=== PATIENT | female | born 1965 | race Caucasian/White ===

== ENCOUNTER 2017-04-24 15:25 | Emergency (ER) | payer OTHER ==
[~2017-04-24] VITALS: Ht 152.4 cm; Wt 76.0 kg
[2017-04-24 15:26] VITALS: TEMP 36.3; Ht 152.4 cm; Wt 76.0 kg
[2017-04-24] MEDS ORDERED: ONDANSETRON INJ 2 MG/ML 2 ML VIAL IV STA (15:48)
[2017-04-24] MEDS ORDERED: SODIUM CHLORIDE 0.9% 1000ML 1,000 ML IV ONE (16:00)
[2017-04-24] MEDS ORDERED: FLUO40CA8 PO (16:11)
[2017-04-24] MEDS ORDERED: CHOL1000 PO (16:11)
--- NOTE | 2017-04-24 16:13 | EMERGENCY ROOM VISIT NOTE ---
History First contact with patient: 15:30 Chief Complaint: VOMITING Stated Complaint: VOMITIMG, NAUSEA, DIARRHEA,BLOOD LOSS Nursing Triage Summary: pt to the ED with c/o lower abd pain n/v/d and today has dark brown blood in stool History of Present Illness The patient is a 51 year old female who presents to the Emergency Room with complaints of nausea, vomiting, diarrhea and bright red blood in her stool that started today. The patient reports feeling like she was constipated in her abdomen felt "tight." She took a dose of mag citrate. She then went to the [place]. She had several episodes of vomiting in the library. She then had several bowel movements. The first one was very firm and claylike. The bowel movements thereafter were diarrhea. She also reports being incontinent of bright red blood. The blood was on the floor in the bathroom. She has felt feverish with chills. 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 He does not take any blood thinners. Review of Systems 10 system review performed and negative unless noted in HPI or below Past Medical/Surgical History Depression Social History Smoking Status: Never Smoker Occupation Status: employed Current/Historical Medications Scheduled Cholecalciferol (Vitamin D3), 1,000 UNITS PO DAILY Dicyclomine Hcl (Bentyl), 1 CAP PO TID Fluoxetine (Prozac), 40 MG PO DAILY Ondasetron Odt (Zofran Odt), 4 MG SL Q6H Physical Exam Vital Signs Date Time Temp Pulse Resp B/P (MAP) Pulse Ox O2 Delivery O2 Flow Rate FiO2 04/24/17 20:41 74 20 116/71 99 Room Air 04/24/17 19:38 76 18 116/71 99 Room Air 04/24/17 17:42 78 18 131/78 99 Room Air 04/24/17 16:37 86 18 102/59 100 Room Air 04/24/17 15:26 36.3 84 22 111/87 100 Room Air Physical Exam VITALS: Vitals are noted on the nurse's note and reviewed by myself. Vital signs stable. GENERAL: 51-year-old female, moderately uncomfortable and fatigued in appearance , SKIN: The skin was without rashes, erythema, edema, or bruising. HEAD: Normocephalic atraumatic. MOUTH: Mucous membranes dry NECK: Supple without nuchal rigidity. No lymphadenopathy. Cervical spine is nontender. No JVD. HEART: Regular rate and rhythm without murmurs gallops or rubs. LUNGS: Clear to auscultation bilaterally without wheezes, rales or rhonchi. No accessory muscle use. ABDOMEN: Positive bowel sounds x 4.Soft, diffuse tenderness to palpation without any focal tenderness, without organomegaly. No guarding or rebound tenderness. RECTAL: Nonbleeding external hemorrhoids present. Mild tenderness to palpation at approximately 6:00. No palpable fissures. MUSCULOSKELETAL: No muscle atrophy, erythema, or edema noted. Strength 5/5 throughout. NEURO: Patient was alert and oriented to person place and time. Normal sensation to touch. No focal neurological deficits. Medical Decision & Procedures ER Provider Diagnostic Interpretation: CT abdomen and pelvis with IV contrast IMPRESSION: 1. Significant wall thickening and inflammatory change of an extended segment of colon involving the mid transverse colon to the proximal sigmoid colon. Inflammatory changes greatest in the distal descending colon. Findings are most consistent with an infectious colitis. The distribution are use against ischemia. No evidence of perforation or abscess. 2. Benign-appearing 3.5 cm functional right ovarian cyst. In this potentially early postmenopausal female, a follow-up ultrasound in 6-12 months is recommended to ensure resolution. Electronically signed by: Jonathan Watkins M.D. 04/24/2017 6:54 PM Chest/abdominal x-rays IMPRESSION: 1. No acute cardiopulmonary disease. 2. No radiographic evidence of acute intra-abdominal pathology. Electronically signed by: Jonathan Watkins M.D. 04/24/2017 5:15 PM Dictated Date/Time: 04/24/2017 5:14 PM Laboratory Results 04/24/17 16:25 Red Blood Count 5.14, Mean Corpuscular Volume 82.9, Mean Corpuscular Hemoglobin 28.8, Mean Corpuscular Hemoglobin Concent 34.7, Mean Platelet Volume 9.8, Neutrophils (%) (Auto) 92.9, Lymphocytes (%) (Auto) 3.0, Monocytes (%) (Auto) 3.7, Eosinophils (%) (Auto) 0.1, Basophils (%) (Auto) 0.0, Neutrophils # (Auto) 23.16, Lymphocytes # (Auto) 0.76, Monocytes # (Auto) 0.92, Eosinophils # (Auto) 0.02, Basophils # (Auto) 0.01 04/24/17 16:25 Test 04/24/17 16:20 04/24/17 16:25 04/24/17 19:35 Urine Color DK YELLOW Urine Appearance CLEAR (CLEAR) Urine pH 5.0 (4.5-7.5) Urine Specific [place] 1.024 (1.000-1.030) Urine Protein NEG (NEG) Urine Glucose (UA) NEG (NEG) Urine Ketones 1+ (NEG) Urine Occult Blood TRACE (NEG) Urine Nitrite NEG (NEG) Urine Bilirubin NEG (NEG) Urine Urobilinogen NEG (NEG) Urine Leukocyte Esterase TRACE (NEG) Urine WBC (Auto) 1-5 /hpf (0-5) Urine RBC (Auto) 0-4 /hpf (0-4) Urine Hyaline Casts (Auto) 1-5 /lpf (0-5) Urine Epithelial Cells (Auto) 20-30 /lpf (0-5) Urine Bacteria (Auto) NEG (NEG) White Blood Count 24.95 K/uL (4.8-10.8) Red Blood Count 5.14 M/uL (4.2-5.4) Hemoglobin 14.8 g/dL (12.0-16.0) Hematocrit 42.6 % (37-47) Mean Corpuscular Volume 82.9 fL (80-100) Mean Corpuscular Hemoglobin 28.8 pg (25-34) Mean Corpuscular Hemoglobin Concent 34.7 g/dl (32-36) Platelet Count 320 K/uL (130-400) Mean Platelet Volume 9.8 fL (7.4-10.4) Neutrophils (%) (Auto) 92.9 % Lymphocytes (%) (Auto) 3.0 % Monocytes (%) (Auto) 3.7 % Eosinophils (%) (Auto) 0.1 % Basophils (%) (Auto) 0.0 % Neutrophils # (Auto) 23.16 K/uL (1.4-6.5) Lymphocytes # (Auto) 0.76 K/uL (1.2-3.4) Monocytes # (Auto) 0.92 K/uL (0.11-0.59) Eosinophils # (Auto) 0.02 K/uL (0-0.5) Basophils # (Auto) 0.01 K/uL (0-0.2) RDW Standard Deviation 38.9 fL (36.4-46.3) RDW Coefficient of Variation 12.8 % (11.5-14.5) Immature Granulocyte % (Auto) 0.3 % Immature Granulocyte # (Auto) 0.08 K/uL (0.00-0.02) Red Blood Cell Morphology Unremarkable Prothrombin Time 10.0 SECONDS (9.0-12.0) Prothromb Time International Ratio 1.0 (0.9-1.1) Anion Gap 10.0 mmol/L (3-11) Est Creatinine Clear Calc Drug Dose 58.8 ml/min Estimated GFR () 73.2 Estimated GFR (Non- 63.2 BUN/Creatinine Ratio 18.6 (10-20) Calcium Level 9.9 mg/dl (8.5-10.1) Total Bilirubin 0.5 mg/dl (0.2-1) Aspartate Amino Transf (AST/SGOT) 25 U/L (15-37) Alanine Aminotransferase (ALT/SGPT) 31 U/L (12-78) Alkaline Phosphatase 77 U/L (45-117) Total Protein 7.5 gm/dl (6.4-8.2) Albumin 3.5 gm/dl (3.4-5.0) Globulin 4.0 gm/dl (2.5-4.0) Albumin/Globulin Ratio 0.9 (0.9-2) Lipase 129 U/L (73-393) Lactic Acid Level 1.2 mmol/L (0.4-2.0) Medications Administered Medications (Trade) Dose Ordered Sig/Jose Route Start Time Stop Time Status Last Admin Dose Admin Sodium Chloride 1,000 ml @ 999 mls/hr Q1H1M ONCE IV 04/24/17 16:00 04/24/17 17:00 DC 04/24/17 16:36 999 MLS/HR Ondansetron HCl (Zofran Inj) 4 mg NOW STAT IV 04/24/17 15:48 04/24/17 15:51 DC 04/24/17 16:35 4 MG Morphine Sulfate (MoRPHine SULFATE INJ) 4 mg Q1H PRN IV 04/24/17 16:00 04/24/17 20:54 DC 04/24/17 19:37 4 MG Diphenhydramine HCl (Benadryl Inj) 25 mg NOW STAT IV 04/24/17 18:06 04/24/17 18:07 DC 04/24/17 18:14 25 MG Methylprednisolone Sodium Succinate (Solu-Medrol IV) 40 mg NOW STAT IV 04/24/17 18:06 2 18:07 DC 04/24/17 18:15 40 MG Prochlorperazine Edisylate (Compazine Inj) 10 mg NOW STAT IV 04/24/17 19:31 04/24/17 19:32 DC 04/24/17 19:38 10 MG Ondansetron HCl (ZOFRAN ODT 4MG Home Pack) 1 homepack UD ONCE PO 04/24/17 20:30 04/24/17 20:31 DC 04/24/17 20:30 1 HOMEPACK Dicyclomine HCl (Dicyclomine HCl 10MG Home Pack) 1 ea UD ONCE PO 04/24/17 20:30 04/24/17 20:31 DC 04/24/17 20:30 1 EA ED Course Patient was seen and examined Vital signs including blood pressure were reviewed medications list was verified with patient Labs were obtained, and a saline lock was established The patient was medicated with morphine and Zofran. She was hydrated with 1 L normal saline. Imaging was performed and reviewed The patient was premedicated for CAT scan with Solu-Medrol and Benadryl Upon reevaluation, the patient was resting in bed. She was still complaining of pain and nausea. She was ordered Compazine and had additional dose of morphine. After the second round of medications, the patient was feeling much better. I discussed the workup with my supervising physician. It was also discussed with the radiologist. We reviewed the CT scan. I thoroughly went over the results numerous times with the patient and the patient's family. They voiced understanding. I reviewed discharge instructions the patient. They voiced understanding and had no further questions. Medical Decision Differential diagnosis: Viral GI illness, bacterial GI illness, constipation, anal fissure, hemorrhoids, inflammatory bowel disease, This patient is a 51-year-old female that presents to the emergency department with vomiting, diarrhea and blood in her stool. On exam, she was dehydrated and is moderately uncomfortable. The patient's workup reveals significant leukocytosis. This could be secondary to vomiting, however I do want to rule out infectious etiology or an obstruction. A CT was ordered. This shows mild colitis. There are no signs of ischemia. Her lactic acid is normal. She is afebrile. She was unable to give a stool sample. Regarding the blood in her stool, she was guaiac positive. She had some tenderness in the anus. My thought that this is possibly due to a small tear with the amount of constipation that the patient had earlier. The patient's H&H is stable. I believe she is stable to be discharged home. She had good symptomatic relief in the emergency department. She was advised to follow-up closely with her primary care physician. She agrees to return to the emergency department with any worsening symptoms. This chart was completed in part utilizing [employer] Speech Voice Recognition software. Attempts were made to minimize the grammatical errors, random word insertions, pronoun errors and incomplete sentences. Any formal questions or concerns about the content, text or information contained within the body of this dictation should be directly addressed to the provider for clarification. Medication Reconcilliation Current Medication List: was personally reviewed by me Blood Pressure Screening Patient's blood pressure: Normal blood pressure Impression Primary Impression: Nausea, vomiting, and diarrhea Departure Information Dispostion Home / Self-Care Condition FAIR Prescriptions Dicyclomine Hcl (BENTYL) 10 Mg Cap 1 CAP PO TID, #15 CAP Prov: Brenda Boucher PA-C 04/24/17 Ondasetron Odt (ZOFRAN ODT) 4 Mg Tab 4 MG SL Q6H for Nausea, #15 TAB Prov: Brenda Boucher PA-C 04/24/17 Referrals Francia Garza M.D. (PCP) Patient Instructions ED Diet Vomiting Diarrhea, My [facility] Additional Instructions You have been evaluated in the emergency department for vomiting, diarrhea and blood in your stool. Please follow a clear liquid diet such as Gatorade, water and sports drinks for the next 24 hours. If you are tolerating this, advance to a bland diet such as crackers and dry toast. Please take Zofran 1 tab under the tongue every 6 hours as needed for nausea Please take Bentyl 1 tab every 8 hours as needed for abdominal cramping/pain It is very important to have close follow-up from your primary care physician. Call sooner as possible for a follow-up appointment. Do not hesitate to return to the emergency department with any new, worsening or concerning symptoms; especially, fever, worsening pain or passing large amounts of blood in your stool
[2017-04-24] MEDS: MoRPHine SULFATE 4 MG/ML 1 ML CARP\\VIAL IV PRN ×2 (16:36→19:37)
[2017-04-24 16:42] LABS: HEMATOCRIT 42.6 % (37-47); HEMOGLOBIN 14.8 g/dL (12.0-16.0); MEAN CELL VOLUME 82.9 fL (80-100); MEAN CORPUSCULAR HEMOGLOBIN 28.8 pg (25-34); MEAN CORPUSCULAR HGB CONC 34.7 g/dl (32-36); MEAN PLATELET VOLUME 9.8 fL (7.4-10.4); PLATELET COUNT 320 K/uL (130-400); RED CELL DISTRIBUTION WIDTH CV 12.8 % (11.5-14.5); RED CELL DISTRIBUTION WIDTH SD 38.9 fL (36.4-46.3); WHITE BLOOD COUNT 24.95 K/uL (4.8-10.8)
[2017-04-24 17:02] LABS: ALBUMIN 3.5 gm/dl (3.4-5.0); CALCIUM 9.9 mg/dl (8.5-10.1); CREATININE 1.02 mg/dl (0.60-1.20); POTASSIUM 3.4 mmol/L (3.5-5.1)
[2017-04-24 17:05] LABS: BASO ABS # 0.01 K/uL (0-0.2); EOS % 0.1 %; EOS ABS # 0.02 K/uL (0-0.5); IG# 0.08 K/uL (0.00-0.02); LYMPH ABS # 0.76 K/uL (1.2-3.4); MONO % 3.7 %; MONO ABS # 0.92 K/uL (0.11-0.59); NEUT % 92.9 %; NEUT ABS # 23.16 K/uL (1.4-6.5); TOTAL PROTEIN 7.5 gm/dl (6.4-8.2)
--- NOTE | 2017-04-24 17:16 | DIAGNOSTIC IMAGING REPORT ---
ABDOMEN 2VIEW W/PA CHEST RTN CLINICAL HISTORY: 51 years-old Female presenting with abd pain vomiting blood in stool. TECHNIQUE: PA view of the chest and supine and upright views of the abdomen were obtained. COMPARISON: None. FINDINGS: Cardiomediastinal silhouette normal. Lungs and pleural spaces clear. Nonobstructive bowel gas pattern. No gross pneumoperitoneum. Allowing for bowel gas and stool, no calcifications to suggest nephrolithiasis. Osseous structures normal. IMPRESSION: 1. No acute cardiopulmonary disease. 2. No radiographic evidence of acute intra-abdominal pathology. Electronically signed by: Jonathan Watkins M.D. 04/24/2017 5:15 PM Dictated Date/Time: 04/24/2017 5:14 PM
[2017-04-24] MEDS ORDERED: OPTIRAY 320 IV PRN (17:30)
[2017-04-24] MEDS ORDERED: METHYLPREDNISOLONE 1000 MG/16 ML IV STA (18:06)
[2017-04-24] MEDS ORDERED: DiphenhydrAMINE HCL 50 MG/ML VIAL IV STA (18:06)
--- NOTE | 2017-04-24 18:55 | DIAGNOSTIC IMAGING REPORT ---
ABD/PELVIS IV CONTRAST ONLY CLINICAL HISTORY: 51 years-old Female presenting with n/v/d blood in stool, lower abdominal pain. TECHNIQUE: Multidetector CT of the abdomen and pelvis was performed after the administration of intravenous contrast. IV contrast: 93 mL of Optiray 320. A dose lowering technique was used consistent with the principles of ALARA (as low as reasonably achievable). COMPARISON: None. CT DOSE (mGy.cm): The estimated cumulative dose is 438.70 mGy.cm. FINDINGS: Tank Setter topogram: Unremarkable. Lung bases: Lungs and pleural spaces clear. Normal heart size. No pericardial or pleural effusion. Liver: Normal morphology. No liver lesion. Patent hepatic vasculature. Biliary: No intrahepatic or extrahepatic biliary ductal dilatation. Normal gallbladder. Pancreas: Normal. Spleen: Normal. Adrenal glands: Normal. Kidneys and ureters: Few subcentimeter hypodensities in the kidneys to small to characterize but possibly cysts. No hydronephrosis. No nephrolithiasis. Normal ureters. Bladder: Normal. Pelvic organs: Normal uterus and left ovary. Right ovary contains a simple appearing 3.5 cm cyst. Bowel: Wall thickening with submucosal edema extending from the mid transverse colon to the proximal sigmoid colon. Pericolonic fat stranding most prominently in the distal descending colon. No evidence of diverticula. No adjacent fluid collection to suggest abscess. No evidence of perforation. The appendix is normal. No bowel obstruction. Small hiatal hernia. Peritoneal cavity: No free fluid or intraperitoneal gas. Lymph nodes: No enlarged lymph nodes in the abdomen or pelvis. Vasculature: Aorta and IVC patent and normal in caliber. Abdominal wall: Normal. Musculoskeletal: Normal. IMPRESSION: 1. Significant wall thickening and inflammatory change of an extended segment of colon involving the mid transverse colon to the proximal sigmoid colon. Inflammatory changes greatest in the distal descending colon. Findings are most consistent with an infectious colitis. The distribution are use against ischemia. No evidence of perforation or abscess. 2. Benign-appearing 3.5 cm functional right ovarian cyst. In this potentially early postmenopausal female, a follow-up ultrasound in 6-12 months is recommended to ensure resolution. Electronically signed by: Jonathan Watkins M.D. 04/24/2017 6:54 PM Dictated Date/Time: 04/24/2017 6:47 PM
[2017-04-24] MEDS ORDERED: PROCHLORPERAZINE 5 MG/ML 2 ML VIAL IV STA (19:31)
[2017-04-24] MEDS ORDERED: ONDA4TAB10 SL (20:26)
[2017-04-24] MEDS ORDERED: DICY10CA55 PO (20:26)
[2017-04-24] MEDS ORDERED: ONDANSETRON HOME PACK 4MG OD TAB PO ONE (20:30)
[2017-04-24] MEDS ORDERED: BENTYL HOME PACK 10 MG VIAL PO ONE (20:30)
[2017-04-24 20:41] VITALS: BP 116/71; PULSE 74; O2SAT 99
== END 2017-04-24 20:43 | disposition home or self-care (01) ==
LOC: C.EDB 15:27
DX: R11.2 Nausea with vomiting, unspecified (principal); R19.7 Diarrhea, unspecified; F32.9 Major depressive disorder, single episode, unspecified; Z79.899 Other long term (current) drug therapy

== ENCOUNTER 2019-07-02 15:14 | Inpatient (IN) ==
[2019-07-02] MEDS ORDERED: ALBUT/IPRATROP 3MG/0.5MG NEB 3 ML VIAL INH STA (15:39)
[2019-07-02] MEDS ORDERED: SODIUM CHLORIDE 0.9% 1000ML 1,000 ML IV SCH ×2 (15:45→17:20)
--- NOTE | 2019-07-02 15:54 | Emergency Department Note ---
Impression & Plan Asthma with exacerbation, Diffuse wheezing, SOB (shortness of breath), Tachycardia, SIRS (systemic inflammatory response syndrome) ED Provider Note NAME: TRAVIS JAMES AGE: 53 SEX: F ARRIVES VIA: Ambulance INFORMANT: [Patient] ED PROVIDER(S): Konrad Farnsworth MD CHIEF COMPLAINT: Shortness of breath PLAN: Disposition: Admitted Condition: [Good] MEDICAL DECISION MAKING: The patient has a history of asthma and reactive airways. She has had several weeks of symptoms and despite multiple treatments with her nebulizer, inhaler, and 2 rounds of prednisone she is not getting any better. She had diffuse wheezing and tachycardia. She was treated with an hour-long DuoNeb. EMS did give her Solu-Medrol prehospital. Chest x-ray and blood work were obtained. ECG was done. Patient was in respiratory isolation due to concerns for novel coronavirus. Flu testing was performed as well. Blood work revealed a significant leukocytosis. The patient's blood pressure did fluctuate. Her VBG was unremarkable. This fluctuation in her blood pressure leukocytosis was concerning for Sirs. She was treated with broad-spectrum antibiotics. Hospital admission is absolutely necessary. This was discussed with the patient and she was in agreement. She was feeling better after the DuoNeb treatment. She was still tachycardic. I discussed the case with Dr. Freeman of the [facility]. He will have the patient in isolation and test her for normal coronavirus. Consultation was made with the [facility]. The patient was evaluated for further management. Triage Nursing notes reviewed and agree them. Vital Signs: reviewed and remarkable for tachycardia Differential diagnosis: Reactive airway disease, pneumonia, viral syndrome, pneumothorax, COPD, CHF, infections, cardiac ischemia, pulmonary embolism, musculoskeletal, gastrointestinal, as well as other pathologies. ER treatment provided: Hour-long DuoNeb Supplemental oxygen Respiratory isolation Saline hydration IV cefepime IV doxycycline Diagnostics interpreted by me: ECG: [none] Cardiac Monitoring: Cardiac monitoring ordered by me: The patient was placed on continuous cardiac monitoring and observed. It revealed a sinus tachycardia at 122 beats per minute without ectopy or evidence of dysrhythmia. Laboratory studies: [See below] significant leukocytosis on CBC. Chemistry panel was unremarkable. Blood cultures pending. Influenza testing negative. Imaging studies: Chest x-ray did not reveal any acute process. No annelise infiltrates. Consultation(s): [facility]: HPI: The patient is a 53 year old female who presents to the Emergency Room with complaints of shortness of breath and wheezing. This started several weeks ago and is worsening. The patient also notes the following associated symptoms, cough with occasional yellow sputum. The patient has tried her inhaler, nebulizer, and 2 rounds of prednisone for relieving factors. Current pain is rated as 0/10. Patient occasionally had some chest tightness with coughing. She has a history of asthma. Her daughter did travel abroad during the month of May. She also noted contact with the person had flulike symptoms, fever, and myalgias. She was not tested for novel coronavirus. She had prescriptions called in by her primary office but has not been seen for this problem. Pt denies LOC, headache, fevers, chills, diaphoresis, visual changes, neck pain, chest pain, nausea, vomiting, abdominal pain, back pain, melena, hematochezia, urinary symptoms, numbness, weakness, lymphadenopathy, rash, or other complaints. ROS: See above HPI for pertinent positives & negatives. A total of [10] systems reviewed and were otherwise negative. PAST MEDICAL HISTORY:[See Below] asthma PAST SURGICAL HISTORY:[See Below] FAMILY HISTORY:[See Below] SOCIAL HISTORY:[See Below] lives with family HOME MEDICATIONS:[See Below] ALLERGIES:[See Below] VITALS:[See Below] PHYSICAL EXAMINATION: GENERAL: Awake, alert, dyspnea-appearing, in mild distress HENT: Normocephalic, atraumatic. Oropharynx unremarkable. EYES: Normal conjunctiva. Sclera non-icteric. NECK: Inspection normal. Non-tender. Supple. No nuchal rigidity. FROM. No masses. RESPIRATORY: Bilateral wheezes. No rales. Increased respiratory effort. CARDIAC: Tachycardia rate. Normal rhythm. No murmurs. No rubs. Extremities warm and well perfused. Pulses equal. No JVD. GI: Soft, non-distended. No tenderness to palpation. No rebound or guarding. No masses. RECTAL: Deferred. MUSCULOSKELETAL: Atraumatic. Chest examination reveals no tenderness. The back is symmetrical on inspection without obvious abnormality. There is no CVA tenderness to palpation. No joint edema. LOWER EXTREMITIES: Calves are equal size bilaterally and non-tender. No edema. No discoloration. NEURO: Normal sensorium. No sensory or motor deficits noted. SKIN: No rash or jaundice noted. ED COURSE: [Critical Care:] I have personally spent greater than 38 minutes of critical care time in the direct management of this patient. This includes bedside care, interpretation of diagnostic studies, and testing, discussion with consultants, patient, and other required patient management activities. This 38 minutes is in excess of all separately billable procedures. Konrad Farnsworth MD Past Med/Surg History Social History Preferred Language: Upper Sorbian Feels Safe at Home: Yes Smoking Status: Never smoker Allergies Allergies Allergy/AdvReac Type Severity Reaction Status Date / Time Penicillins Allergy Intermediate rash Verified 07/02/19 16:40 Sulfa (Sulfonamide Allergy Intermediate rash Verified 07/02/19 16:40 Antibiotics) Home Meds Home Medications Medication Instructions Recorded Confirmed albuterol sulfate [Ventolin HFA] 2 puff INHALATION .Q4-6HRS PRN 07/02/19 07/02/19 cetirizine 10 mg PO DAILY PRN 07/02/19 07/02/19 famotidine [Pepcid] 20 mg PO BID PRN 07/02/19 07/02/19 fluoxetine 40 mg PO DAILY 07/02/19 07/02/19 fluticasone propionate [Flonase 2 spray INTRANASAL DAILY PRN 07/02/19 07/02/19 Allergy Relief] [id number] oil [[place]-3 1 cap PO DAILY 07/02/19 07/02/19 Fish Oil] Results & Data (ED) Vital Signs Vital Signs - 24 hr 07/02/19 15:15 07/02/19 15:34 07/02/19 15:39 Temperature 37.2 C Temperature Source Oral Pulse Rate 120 H Pulse Rate [Finger] Pulse Rate from SpO2 Sensor Respiratory Rate 30 H Respiratory Effort / Characteristics Non-Labored Spontaneous Respiratory Depth Normal Respiratory Pattern Regular Blood Pressure 122/89 122/89 Blood Pressure Mean 100 101 Blood Pressure Position Lying Pulse Oximetry 92 92 Oxygen Delivery Method Room Air Room Air Oxygen Flow Rate 0 Sepsis Recent Fever Within 48 Hours No Sepsis New/Unexplained Change in Mental Status No Sepsis Action Taken by Nursing No Action Required Oxygen Flow Rate - Titration 2 Pulse Oximetry Post Tiitration 95 07/02/19 15:43 07/02/19 15:50 07/02/19 16:00 Temperature Temperature Source Pulse Rate 120 H 113 H Pulse Rate [Finger] Pulse Rate from SpO2 Sensor 121 H 120 H 115 H Respiratory Rate 35 H 23 Respiratory Effort / Characteristics Respiratory Depth Respiratory Pattern Blood Pressure Blood Pressure Mean Blood Pressure Position Pulse Oximetry 95 93 98 Oxygen Delivery Method Oxygen Flow Rate Sepsis Recent Fever Within 48 Hours Sepsis New/Unexplained Change in Mental Status Sepsis Action Taken by Nursing Oxygen Flow Rate - Titration Pulse Oximetry Post Tiitration 07/02/19 16:01 07/02/19 16:10 07/02/19 16:17 Temperature Temperature Source Pulse Rate 114 H 119 H Pulse Rate [Finger] 115 H Pulse Rate from SpO2 Sensor 114 H 119 H Respiratory Rate 26 H 26 H 20 Respiratory Effort / Characteristics Spontaneous Respiratory Depth Respiratory Pattern Blood Pressure 77/59 L Blood Pressure Mean 65 Blood Pressure Position Pulse Oximetry 98 97 93 Oxygen Delivery Method Room Air Oxygen Flow Rate Sepsis Recent Fever Within 48 Hours Sepsis New/Unexplained Change in Mental Status Sepsis Action Taken by Nursing Oxygen Flow Rate - Titration Pulse Oximetry Post Tiitration 07/02/19 16:18 07/02/19 16:20 07/02/19 16:30 Temperature Temperature Source Pulse Rate Pulse Rate [Finger] Pulse Rate from SpO2 Sensor 115 H 115 H 116 H Respiratory Rate Respiratory Effort / Characteristics Respiratory Depth Respiratory Pattern Blood Pressure 130/63 133/63 Blood Pressure Mean 84 84 Blood Pressure Position Pulse Oximetry 99 98 100 Oxygen Delivery Method Oxygen Flow Rate Sepsis Recent Fever Within 48 Hours Sepsis New/Unexplained Change in Mental Status Sepsis Action Taken by Nursing Oxygen Flow Rate - Titration Pulse Oximetry Post Tiitration 07/02/19 16:31 07/02/19 16:40 07/02/19 16:50 Temperature Temperature Source Pulse Rate Pulse Rate [Finger] Pulse Rate from SpO2 Sensor 117 H 118 H 127 H Respiratory Rate Respiratory Effort / Characteristics Respiratory Depth Respiratory Pattern Blood Pressure Blood Pressure Mean Blood Pressure Position Pulse Oximetry 99 100 100 Oxygen Delivery Method Oxygen Flow Rate Sepsis Recent Fever Within 48 Hours Sepsis New/Unexplained Change in Mental Status Sepsis Action Taken by Nursing Oxygen Flow Rate - Titration Pulse Oximetry Post Tiitration 07/02/19 17:00 07/02/19 17:01 07/02/19 17:08 Temperature Temperature Source Pulse Rate Pulse Rate [Finger] Pulse Rate from SpO2 Sensor 132 H 129 H 128 H Respiratory Rate Respiratory Effort / Characteristics Respiratory Depth Respiratory Pattern Blood Pressure 94/62 L 100/52 L Blood Pressure Mean 78 64 Blood Pressure Position Pulse Oximetry 100 100 100 Oxygen Delivery Method Oxygen Flow Rate Sepsis Recent Fever Within 48 Hours Sepsis New/Unexplained Change in Mental Status Sepsis Action Taken by Nursing Oxygen Flow Rate - Titration Pulse Oximetry Post Tiitration 07/02/19 17:31 07/02/19 18:00 07/02/19 18:30 Temperature Temperature Source Pulse Rate 126 H Pulse Rate [Finger] Pulse Rate from SpO2 Sensor 127 H 128 H 125 H Respiratory Rate 27 H Respiratory Effort / Characteristics Respiratory Depth Respiratory Pattern Blood Pressure 87/55 L 104/60 89/64 L Blood Pressure Mean 72 78 69 Blood Pressure Position Pulse Oximetry 100 96 94 Oxygen Delivery Method Oxygen Flow Rate Sepsis Recent Fever Within 48 Hours Sepsis New/Unexplained Change in Mental Status Sepsis Action Taken by Nursing Oxygen Flow Rate - Titration Pulse Oximetry Post Tiitration Laboratory Data Result diagrams: 07/02/19 16:00 07/02/19 16:00 Lab Results 07/02/19 07/02/19 07/02/19 Range/Units 16:00 16:00 16:00 WBC 18.23 H (4.8-10.8) K/uL RBC 5.24 (4.2-5.4) M/uL Hgb 14.7 (12.0-16.0) g/dL Hct 44.6 (37-47) % MCV 85.1 (80-100) fL MCH 28.1 (25-34) pg MCHC 33.0 (32-36) g/dL RDW Std Deviation 40.7 (36.4-46.3) fL RDW Coeff of Mary Kay 13.2 (11.5-14.5) % Plt Count 355 (130-400) K/uL MPV 9.6 (7.4-10.4) fL Immature Gran % (Auto) 0.3 % Neut % (Auto) 89.1 % Lymph % (Auto) 5.4 % [place] % (Auto) 3.4 % Eos % (Auto) 1.6 % Baso % (Auto) 0.2 % Immature Gran # (Auto) 0.05 H (0.00-0.02) K/uL Neut # (Auto) 16.25 H (1.4-6.5) K/uL Lymph # (Auto) 0.99 L (1.2-3.4) K/uL [place] # (Auto) 0.62 H (0.11-0.59) K/uL Eos # (Auto) 0.29 (0-0.5) K/uL Baso # (Auto) 0.03 (0-0.2) K/uL ESR (0-21) mm/hr PT 10.1 (9.0-12.0) Seconds INR 1.0 (0.9-1.1) APTT 25.6 (21.0-31.0) Seconds PTT Ratio 0.9 VBG pH (7.36-7.41) VBG pCO2 (38-50) mmHg VBG pO2 mmHg VBG HCO3 mmol/L VBG O2 Saturation % VBG Base Excess mEq/L Barometric Pressure mm/Hg Sodium 140 (136-145) mmol/L Potassium 4.0 (3.5-5.1) mmol/L Chloride 106 (98-107) mmol/L Carbon Dioxide 26 (21-32) mmol/L Anion Gap 7.0 (3-11) BUN 12 (7-18) mg/dl Creatinine 0.98 (0.6-1.2) mg/dl Est Cr Clr Drug Dosing 59.7 ml/min Est GFR ( Amer) 75.8 Est GFR (Non-Af Amer) 65.4 BUN/Creatinine Ratio 12.7 (10-20) Glucose 107 H (70-99) mg/dl Lactate (0.4-2.0) mmol/L Calcium 9.2 (8.5-10.1) mg/dl Magnesium 2.3 (1.8-2.4) mg/dl Ferritin (8-388) ng/ml Total Bilirubin 0.2 (0.2-1) mg/dl AST 31 (15-37) U/L ALT 57 (12-78) U/L Alkaline Phosphatase 145 H (45-117) U/L Lactate Dehydrogenase (84-246) U/L Troponin I < 0.015 (0-0.045) ng/ml C-Reactive Protein (0-0.29) mg/dl Total Protein 7.9 (6.4-8.2) gm/dl Albumin 3.6 (3.4-5.0) gm/dl Globulin 4.3 H (2.5-4.0) gm/dl Albumin/Globulin Ratio 0.8 L (0.9-2) Procalcitonin (0-0.5) ng/ml Specimen Hemolysis Urine Color Urine Appearance (Clear) Urine pH (4.5-7.5) Ur Specific [place] (1.000-1.030) Urine Protein (Negative) Urine Glucose (UA) (Negative) Urine Ketones (Negative) Urine Blood (Negative) Urine Nitrite (Negative) Urine Bilirubin (Negative) Urine Urobilinogen (Negative) Ur Leukocyte Esterase (Negative) Urine WBC (Auto) (0-5) /hpf Urine RBC (Auto) (0-4) /hpf U Hyaline Cast (Auto) (0-5) /lpf U Epithel Cells (Auto) (0-5) /lpf Urine Bacteria (Auto) (Negative) Influenza Type A (PCR) (Neg) Influenza Type B (PCR) (Neg) 07/02/19 07/02/19 07/02/19 Range/Units 16:00 16:00 16:00 WBC (4.8-10.8) K/uL RBC (4.2-5.4) M/uL Hgb (12.0-16.0) g/dL Hct (37-47) % MCV (80-100) fL MCH (25-34) pg MCHC (32-36) g/dL RDW Std Deviation (36.4-46.3) fL RDW Coeff of Mary Kay (11.5-14.5) % Plt Count (130-400) K/uL MPV (7.4-10.4) fL Immature Gran % (Auto) % Neut % (Auto) % Lymph % (Auto) % [place] % (Auto) % Eos % (Auto) % Baso % (Auto) % Immature Gran # (Auto) (0.00-0.02) K/uL Neut # (Auto) (1.4-6.5) K/uL Lymph # (Auto) (1.2-3.4) K/uL [place] # (Auto) (0.11-0.59) K/uL Eos # (Auto) (0-0.5) K/uL Baso # (Auto) (0-0.2) K/uL ESR (0-21) mm/hr PT (9.0-12.0) Seconds INR (0.9-1.1) APTT (21.0-31.0) Seconds PTT Ratio VBG pH 7.33 L (7.36-7.41) VBG pCO2 52 H (38-50) mmHg VBG pO2 53 mmHg VBG HCO3 27 mmol/L VBG O2 Saturation 73.0 % VBG Base Excess -0.2 mEq/L Barometric Pressure 724.7 mm/Hg Sodium (136-145) mmol/L Potassium (3.5-5.1) mmol/L Chloride (98-107) mmol/L Carbon Dioxide (21-32) mmol/L Anion Gap (3-11) BUN (7-18) mg/dl Creatinine (0.6-1.2) mg/dl Est Cr Clr Drug Dosing ml/min Est GFR ( Amer) Est GFR (Non-Af Amer) BUN/Creatinine Ratio (10-20) Glucose (70-99) mg/dl Lactate 1.4 (0.4-2.0) mmol/L Calcium (8.5-10.1) mg/dl Magnesium (1.8-2.4) mg/dl Ferritin (8-388) ng/ml Total Bilirubin (0.2-1) mg/dl AST (15-37) U/L ALT (12-78) U/L Alkaline Phosphatase (45-117) U/L Lactate Dehydrogenase (84-246) U/L Troponin I (0-0.045) ng/ml C-Reactive Protein (0-0.29) mg/dl Total Protein (6.4-8.2) gm/dl Albumin (3.4-5.0) gm/dl Globulin (2.5-4.0) gm/dl Albumin/Globulin Ratio (0.9-2) Procalcitonin (0-0.5) ng/ml Specimen Hemolysis Urine Color Urine Appearance (Clear) Urine pH (4.5-7.5) Ur Specific [place] (1.000-1.030) Urine Protein (Negative) Urine Glucose (UA) (Negative) Urine Ketones (Negative) Urine Blood (Negative) Urine Nitrite (Negative) Urine Bilirubin (Negative) Urine Urobilinogen (Negative) Ur Leukocyte Esterase (Negative) Urine WBC (Auto) (0-5) /hpf Urine RBC (Auto) (0-4) /hpf U Hyaline Cast (Auto) (0-5) /lpf U Epithel Cells (Auto) (0-5) /lpf Urine Bacteria (Auto) (Negative) Influenza Type A (PCR) Neg for Influ A (Neg) Influenza Type B (PCR) Neg for Influ B (Neg) 07/02/19 07/02/19 07/02/19 Range/Units 16:00 16:00 16:00 WBC (4.8-10.8) K/uL RBC (4.2-5.4) M/uL Hgb (12.0-16.0) g/dL Hct (37-47) % MCV (80-100) fL MCH (25-34) pg MCHC (32-36) g/dL RDW Std Deviation (36.4-46.3) fL RDW Coeff of Mary Kay (11.5-14.5) % Plt Count (130-400) K/uL MPV (7.4-10.4) fL Immature Gran % (Auto) % Neut % (Auto) % Lymph % (Auto) % [place] % (Auto) % Eos % (Auto) % Baso % (Auto) % Immature Gran # (Auto) (0.00-0.02) K/uL Neut # (Auto) (1.4-6.5) K/uL Lymph # (Auto) (1.2-3.4) K/uL [place] # (Auto) (0.11-0.59) K/uL Eos # (Auto) (0-0.5) K/uL Baso # (Auto) (0-0.2) K/uL ESR 51 H (0-21) mm/hr PT (9.0-12.0) Seconds INR (0.9-1.1) APTT (21.0-31.0) Seconds PTT Ratio VBG pH (7.36-7.41) VBG pCO2 (38-50) mmHg VBG pO2 mmHg VBG HCO3 mmol/L VBG O2 Saturation % VBG Base Excess mEq/L Barometric Pressure mm/Hg Sodium (136-145) mmol/L Potassium (3.5-5.1) mmol/L Chloride (98-107) mmol/L Carbon Dioxide (21-32) mmol/L Anion Gap (3-11) BUN (7-18) mg/dl Creatinine (0.6-1.2) mg/dl Est Cr Clr Drug Dosing ml/min Est GFR ( Amer) Est GFR (Non-Af Amer) BUN/Creatinine Ratio (10-20) Glucose (70-99) mg/dl Lactate (0.4-2.0) mmol/L Calcium (8.5-10.1) mg/dl Magnesium (1.8-2.4) mg/dl Ferritin 59.2 (8-388) ng/ml Total Bilirubin (0.2-1) mg/dl AST (15-37) U/L ALT (12-78) U/L Alkaline Phosphatase (45-117) U/L Lactate Dehydrogenase (84-246) U/L Troponin I (0-0.045) ng/ml C-Reactive Protein 0.62 H (0-0.29) mg/dl Total Protein (6.4-8.2) gm/dl Albumin (3.4-5.0) gm/dl Globulin (2.5-4.0) gm/dl Albumin/Globulin Ratio (0.9-2) Procalcitonin < 0.05 (0-0.5) ng/ml Specimen Hemolysis Urine Color Urine Appearance (Clear) Urine pH (4.5-7.5) Ur Specific [place] (1.000-1.030) Urine Protein (Negative) Urine Glucose (UA) (Negative) Urine Ketones (Negative) Urine Blood (Negative) Urine Nitrite (Negative) Urine Bilirubin (Negative) Urine Urobilinogen (Negative) Ur Leukocyte Esterase (Negative) Urine WBC (Auto) (0-5) /hpf Urine RBC (Auto) (0-4) /hpf U Hyaline Cast (Auto) (0-5) /lpf U Epithel Cells (Auto) (0-5) /lpf Urine Bacteria (Auto) (Negative) Influenza Type A (PCR) (Neg) Influenza Type B (PCR) (Neg) 07/02/19 07/02/19 Range/Units 17:30 17:49 WBC (4.8-10.8) K/uL RBC (4.2-5.4) M/uL Hgb (12.0-16.0) g/dL Hct (37-47) % MCV (80-100) fL MCH (25-34) pg MCHC (32-36) g/dL RDW Std Deviation (36.4-46.3) fL RDW Coeff of Mary Kay (11.5-14.5) % Plt Count (130-400) K/uL MPV (7.4-10.4) fL Immature Gran % (Auto) % Neut % (Auto) % Lymph % (Auto) % [place] % (Auto) % Eos % (Auto) % Baso % (Auto) % Immature Gran # (Auto) (0.00-0.02) K/uL Neut # (Auto) (1.4-6.5) K/uL Lymph # (Auto) (1.2-3.4) K/uL [place] # (Auto) (0.11-0.59) K/uL Eos # (Auto) (0-0.5) K/uL Baso # (Auto) (0-0.2) K/uL ESR (0-21) mm/hr PT (9.0-12.0) Seconds INR (0.9-1.1) APTT (21.0-31.0) Seconds PTT Ratio VBG pH (7.36-7.41) VBG pCO2 (38-50) mmHg VBG pO2 mmHg VBG HCO3 mmol/L VBG O2 Saturation % VBG Base Excess mEq/L Barometric Pressure mm/Hg Sodium (136-145) mmol/L Potassium (3.5-5.1) mmol/L Chloride (98-107) mmol/L Carbon Dioxide (21-32) mmol/L Anion Gap (3-11) BUN (7-18) mg/dl Creatinine (0.6-1.2) mg/dl Est Cr Clr Drug Dosing ml/min Est GFR ( Amer) Est GFR (Non-Af Amer) BUN/Creatinine Ratio (10-20) Glucose (70-99) mg/dl Lactate (0.4-2.0) mmol/L Calcium (8.5-10.1) mg/dl Magnesium (1.8-2.4) mg/dl Ferritin (8-388) ng/ml Total Bilirubin (0.2-1) mg/dl AST (15-37) U/L ALT (12-78) U/L Alkaline Phosphatase (45-117) U/L Lactate Dehydrogenase 203 (84-246) U/L Troponin I (0-0.045) ng/ml C-Reactive Protein (0-0.29) mg/dl Total Protein (6.4-8.2) gm/dl Albumin (3.4-5.0) gm/dl Globulin (2.5-4.0) gm/dl Albumin/Globulin Ratio (0.9-2) Procalcitonin (0-0.5) ng/ml Specimen Hemolysis Urine Color Yellow Urine Appearance Clear (Clear) Urine pH 5.0 (4.5-7.5) Ur Specific [place] 1.024 (1.000-1.030) Urine Protein Negative (Negative) Urine Glucose (UA) Negative (Negative) Urine Ketones Negative (Negative) Urine Blood 2+ H (Negative) Urine Nitrite Negative (Negative) Urine Bilirubin Negative (Negative) Urine Urobilinogen Negative (Negative) Ur Leukocyte Esterase Negative (Negative) Urine WBC (Auto) 1-5 (0-5) /hpf Urine RBC (Auto) 0-4 (0-4) /hpf U Hyaline Cast (Auto) 1-5 (0-5) /lpf U Epithel Cells (Auto) >30 H (0-5) /lpf Urine Bacteria (Auto) Negative (Negative) Influenza Type A (PCR) (Neg) Influenza Type B (PCR) (Neg) Administered Medications Doxycycline Hyclate 100 mg/ (Dextrose) 110 mls @ 50 mls/hr IV NOW STA Stop: 07/02/19 19:30 Last Admin: 07/02/19 18:20 Dose: 50 mls/hr Documented by: [id number] Discontinued Medications Albuterol (Duoneb) 12 ml INH ONE STA Stop: 07/02/19 15:40 Last Admin: 07/02/19 16:15 Dose: 12 ml Documented by: [id number] Sodium Chloride (Nss 1000ml) 1,000 mls @ 999 mls/hr IV .Q1H1M [place] Stop: 07/02/19 16:45 Last Admin: 07/02/19 18:00 Dose: 999 mls/hr Documented by: [id number] Sodium Chloride (Nss 1000ml) 1,000 mls @ 999 mls/hr IV .Q1H1M [place] Stop: 07/02/19 18:20 Last Admin: 07/02/19 18:00 Dose: 999 mls/hr Documented by: [id number] Cefepime HCl 2,000 mg/ Syringe 20 mls @ 5.5 mls/min IV NOW STA Stop: 07/02/19 17:22 Last Admin: 07/02/19 18:10 Dose: 5.5 mls/min Documented by: [id number] Methylprednisolone (Solumedrol) 40 mg IV NOW STA Stop: 07/02/19 18:16 Last Admin: 07/02/19 19:06 Dose: Not Given Documented by: [id number] Discharge Plan Visit Data Chief Complaint: Shortness of Breath/Dyspnea Stated Complaint: SOB ED Provider: Konrad Farnsworth Discharge Problem: Asthma with exacerbation, Diffuse wheezing, SOB (shortness of breath), Tachycardia, SIRS (systemic inflammatory response syndrome) Forms Stand Alone Forms: [employer] [facility] [place] Prescriptions Prescriptions: No Action fluoxetine 40 mg capsule 40 mg PO DAILY RF: 0 cetirizine 10 mg Tablet 10 mg PO DAILY PRN (Reason: Allergy Symptoms) RF: 0 famotidine [Pepcid] 20 mg Tablet 20 mg PO BID PRN (Reason: Heartburn) RF: 0 albuterol sulfate [Ventolin HFA] 90 mcg/actuation HFA aerosol inhaler 2 puff INHALATION .Q4-6HRS PRN (Reason: Shortness Of Breath Or Wheezing) RF: 0 fluticasone propionate [Flonase Allergy Relief] 50 mcg/actuation [place],Susp ension 2 spray INTRANASAL DAILY PRN (Reason: Allergy Symptoms) RF: 0 [place]-3 Fish Oil 300-1,000 mg Capsule 1 cap PO DAILY RF: 0 Referrals Referrals: PCP,NO [Physician] -
[2019-07-02 16:15] LABS: Basophils # (auto) 0.03 K/uL (0-0.2); Basophils % (auto) 0.2 %; Eosinophils # (auto) 0.29 K/uL (0-0.5); Eosinophils % (auto) 1.6 %; Hematocrit (blood only) 44.6 % (37-47); Hemoglobin 14.7 g/dL (12.0-16.0); Immature Granulocytes # (auto) 0.05 K/uL (0.00-0.02); Immature Granulocytes % (auto) 0.3 %; Lymphocytes # (auto) 0.99 K/uL (1.2-3.4); Lymphocytes % (auto) 5.4 %; Mean Corpuscular Hemoglobin 28.1 pg (25-34); Mean Corpuscular Volume 85.1 fL (80-100); Mean Platelet Volume 9.6 fL (7.4-10.4); Monocytes # (auto) 0.62 K/uL (0.11-0.59); Monocytes % (auto) 3.4 %; Neutrophils # (auto) 16.25 K/uL (1.4-6.5); Neutrophils % (auto) 89.1 %; Platelet Count 355 K/uL (130-400); RDW Coefficient of Variation 13.2 % (11.5-14.5); RDW Standard Deviation 40.7 fL (36.4-46.3); Red Blood Count 5.24 M/uL (4.2-5.4); White Blood Count 18.23 K/uL (4.8-10.8)
--- NOTE | 2019-07-02 16:22 | XRay Report ---
XR chest 1V portable HISTORY: 53 years-old Female Dyspnea acute shortness of breath COMPARISON: Acute abdominal series radiographs 04/24/2017 TECHNIQUE: Portable AP view of the chest FINDINGS: Cardiomediastinal and hilar silhouettes are within normal limits. No pneumothorax, pleural effusion, airspace consolidation or overt pulmonary edema.. Subacute to chronic appearing mildly displaced frac ture of the lateral left fourth rib, new from comparison. Mild sigmoidal thoracolumbar scoliosis. IMPRESSION: 1. No acute cardiopulmonary abnormality. 2. Subacute to chronic appearing mildly displaced fracture of the lateral left fourth rib. ACT 112: Negative or not required by law. The above report was generated using voice recognition software. It may contain grammatical, syntax o r spelling errors. Electronically signed by: Hussein Kwong M.D. 07/02/2019 4:20 PM
[2019-07-02 16:25] LABS: Base Excess VBG -0.2 mEq/L; pH VBG 7.33 (7.36-7.41)
[2019-07-02 16:26] LABS: Partial Thromboplastin Ratio 0.9; Partial Thromboplastin Time 25.6 Seconds (21.0-31.0); Prothrombin Time 10.1 Seconds (9.0-12.0)
[2019-07-02 16:51] LABS: Alanine Aminotransferase 57 U/L (12-78); Albumin Globulin Ratio 0.8 (0.9-2); Albumin Level 3.6 gm/dl (3.4-5.0); Alkaline Phosphatase 145 U/L (45-117); Aspartate Aminotransferase 31 U/L (15-37); BUN Creatinine Ratio 12.7 (10-20); Bilirubin,Total 0.2 mg/dl (0.2-1); Blood Urea Nitrogen 12 mg/dl (7-18); Calcium 9.2 mg/dl (8.5-10.1); Carbon Dioxide 26 mmol/L (21-32); Chloride 106 mmol/L (98-107); Creatinine Clr Calc Pharmacy 59.7 ml/min; Est GFR (African American) 75.8; Est GFR (Non-African American) 65.4; Globulin 4.3 gm/dl (2.5-4.0); Glucose 107 mg/dl (70-99); Influenza A virus by PCR Neg for Influ A (Neg); Influenza B virus by PCR Neg for Influ B (Neg); Magnesium 2.3 mg/dl (1.8-2.4); Sodium 140 mmol/L (136-145); Total Protein 7.9 gm/dl (6.4-8.2); Troponin I < 0.015 ng/ml (0-0.045)
[2019-07-02] MEDS ORDERED: CEFEPIME 2,000 MG in SYRINGE 7.5 ML IV STA (17:19)
[2019-07-02] MEDS ORDERED: DOXYCYCLINE HYCLATE 100 MG in DEXTROSE 5% 100 ML IV STA (17:19)
[2019-07-02 17:54] LABS: Appearance Urine Clear (Clear); Bacteria Urine Automated Negative (Negative); Bilirubin Urine Negative (Negative); Blood Urine 2+ (Negative); Color Urine Yellow; Epithelial Cell Urine Auto >30 /lpf (0-5); Glucose Urine UA Negative (Negative); Ketones Urine Negative (Negative); Leukocyte Esterase Urine Negative (Negative); Nitrite Urine Negative (Negative); Protein Urine Negative (Negative); RBC Urine Automated 0-4 /hpf (0-4); Specific Gravity Urine 1.024 (1.000-1.030); Urobilinogen Urine Negative (Negative)
[2019-07-02] MEDS ORDERED: ACETAMINOPHEN 325 MG TAB PO PRN (18:09)
[2019-07-02] MEDS ORDERED: ONDANSETRON INJ 2 MG/ML 2 ML VIAL IV PRN (18:09)
--- NOTE | 2019-07-02 18:14 | History & Physical Report ---
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 Around the time that schools closed, her daughter returned from travel to her home and patient last saw a boyfriend who had flu like symptoms. She reports that her and her daughter have self-quarantined themselves at their home for 4 weeks. However, patient has not been feeling well since April and while she does not have actual febrile temperature she feels that running in high 90s Fahrenheit is not normal for her and having more shortness of breath. She did report more cleaning of her house with cleaning chemicals around the time her daughter returned him but no other potential respiratory triggers recently. Her recent home medications for shortness of breath have been albuterol and prednisone at home. Other REVIEW of SYSTEMS: No abdominal pain, no vomiting, no exposure to tick bites, no changes in bowel movements, no dsyuria, no headache. -Patient was given solumedrol on the ambulance ride to hospital where she was found to have sinus tachycardia and borderline hypotensive. There are no lung infiltrates noted on the chest X ray. The chest X ray suggests "Subacute to chronic appearing mildly displaced fracture of the lateral left fourth rib." but patient does not report of having any acute chest or rib pain. elevated white blood cell count of 18,000 without a lymphocytic predominance -ED provider requests that hospitalist team do COVID-19 testing on this admission given patient's exposures to sick contacts and none of her sick contacts are known to have had any COVID-19 testing. -Patient has viral swab and COVID-19 testing and will admitted to a medical/telemetry bed with isolation precautions; influenza negative -patient was empirically started on respiratory antibiotics in the ED as cefepime and Doxycycline, follow the blood cultures, plan on giving ceftriaxone with doxycycline for now on 07/03/2019 -follow blood cultures -check CRP mildly elevated as 0.62, ESR elevated as 51, procalcitonin negative, LDH, initial troponin negative, initial lactic acid is normal -give IV fluids History of depression -continue fluoxetine 40 mg daily DVT prophylaxis: Lovenox 40 mg daily Full Code Daughter Mindy [phone] History of Present Illness -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 Around the time that schools closed, her daughter returned from travel to her home and patient last saw a boyfriend who had flu like symptoms. She reports that her and her daughter have self-quarantined themselves at their home for 4 weeks. However, patient has not been feeling well since April and while she does not have actual febrile temperature she feels that running in high 90s Fahrenheit is not normal for her and having more shortness of breath. She did report more cleaning of her house with cleaning chemicals around the time her sharee angel returned him but no other potential respiratory triggers recently. Her recent home medications for shortness of breath have been albuterol and prednisone at home. Other REVIEW of SYSTEMS: No abdominal pain, no vomiting, no exposure to tick bites, no changes in bowel movements, no dsyuria, no headache. -Patient was given solumedrol on the ambulance ride to hospital where she was found to have sinus tachycardia and borderline hypotensive. There are no lung infiltrates noted on the chest X ray. The chest X ray suggests "Subacute to chronic appearing mildly displaced fracture of the lateral left fourth rib." but patient does not report of having any acute chest or rib pain. elevated white blood cell count of 18,000 without a lymphocytic predominance -ED provider requests that hospitalist team do COVID-19 testing on this admission given patient's exposures to sick contacts and none of her sick contacts are known to have had any COVID-19 testing. Family History: mother with atrial fibrillation Primary Care Provider: Brennen Sanchez MD Allergies Allergy/AdvReac Type Severity Reaction Status Date / Time Penicillins Allergy Intermediate rash Verified 07/02/19 16:40 Sulfa (Sulfonamide Allergy Intermediate rash Verified 07/02/19 16:40 Antibiotics) Home Medications Home Medications Medication Instructions Recorded Confirmed Type albuterol sulfate [Ventolin HFA] 2 puff INHALATION .Q4-6HRS PRN 07/02/19 07/02/19 History cetirizine 10 mg PO DAILY PRN 07/02/19 07/02/19 History famotidine [Pepcid] 20 mg PO BID PRN 07/02/19 07/02/19 History fluoxetine 40 mg PO DAILY 07/02/19 07/02/19 History fluticasone propionate [Flonase 2 spray INTRANASAL DAILY PRN 07/02/19 07/02/19 History Allergy Relief] [id number] oil [[place]-3 1 cap PO DAILY 07/02/19 07/02/19 History Fish Oil] Past Med/Surg History Social History Preferred Language: Setswana Feels Safe at Home: Yes Smoking Status: Never smoker Review of Systems Review of Systems: All systems reviewed & are unremarkable except as noted in HPI & below Physical Exam Constitutional: comfortable Eyes: PERRL, conjunctivae normal, anicteric sclerae ENMT: external ear and nose normal, oropharynx normal Neck: normal visual inspection Cardiovascular: Rate/Rhythm: + tachycardic Gastrointestinal (Abdomen): normal bowel sounds, soft, nontender, no hepatosplenomegaly Musculoskeletal: Head/Neck/Chest: normocephalic Neurologic: PERRL, EOMI, accommodation nl, no face palsy, no dysarthria CN's II-XI intact bilaterally Psychiatric: A+Ox3, euthymic affect Results & Data Results & Data ([facility]) Vital Signs (Past 12 Hours) Vital Signs Temp Pulse Pulse Resp BP Pulse Ox 07/02/19 17:01 100 07/02/19 17:00 94/62 L 100 07/02/19 16:50 100 07/02/19 16:40 100 07/02/19 16:31 99 07/02/19 16:30 133/63 100 07/02/19 16:20 98 07/02/19 16:18 130/63 99 07/02/19 16:17 115 H 20 93 07/02/19 16:10 119 H 26 H 97 07/02/19 16:01 114 H 26 H 77/59 L 98 07/02/19 16:00 113 H 23 98 07/02/19 15:50 120 H 35 H 93 07/02/19 15:43 95 07/02/19 15:39 92 07/02/19 15:34 122/89 07/02/19 15:15 37.2 C 120 H 30 H 122/89 92 Code Status & VTE Plan VTE Prophylaxis Plan VTE Prophylaxis will be ordered: Yes
[2019-07-02 18:29] LABS: Ferritin 59.2 ng/ml (8-388)
[2019-07-02 18:40] LABS: C Reactive Protein 0.62 mg/dl (0-0.29)
[2019-07-02] MEDS: ALBUTEROL 0.083% NEBU SOLN 3 ML VIAL NEB SCH (20:22)
[2019-07-02] MEDS ORDERED: ENOXAPARIN INJ 40 MG/0.4 ML SYR SQ SCH (21:00)
[2019-07-02] MEDS: SODIUM CHLORIDE 0.9% 1000ML 1,000 ML IV SCH (22:05)
[2019-07-02] MEDS: methylPREDNISolone 40 MG in SYRINGE 0 ML IV SCH (22:05)
[2019-07-03] MEDS: ALBUTEROL 0.083% NEBU SOLN 3 ML VIAL NEB SCH ×2 (00:48→07:02)
[2019-07-03] MEDS ORDERED: cefTRIAXone SODIUM 1,000 MG in DEXTROSE 5% 25 ML IV SCH (06:00)
[2019-07-03] MEDS ORDERED: cefTRIAXone SODIUM 1,000 MG in DEXTROSE 5% 50 ML IV SCH (06:00)
[2019-07-03 07:37] LABS: Basophils # (auto) 0.01 K/uL (0-0.2); Basophils % (auto) 0.1 %; Hemoglobin 12.9 g/dL (12.0-16.0); Immature Granulocytes # (auto) 0.05 K/uL (0.00-0.02); Immature Granulocytes % (auto) 0.3 %; Lymphocytes # (auto) 0.53 K/uL (1.2-3.4); Lymphocytes % (auto) 2.7 %; Mean Corpuscular Hemoglobin 28.3 pg (25-34); Mean Corpuscular Hgb Conc 33.1 g/dL (32-36); Mean Corpuscular Volume 85.5 fL (80-100); Mean Platelet Volume 9.3 fL (7.4-10.4); Monocytes # (auto) 0.27 K/uL (0.11-0.59); Monocytes % (auto) 1.4 %; Neutrophils # (auto) 18.94 K/uL (1.4-6.5); Neutrophils % (auto) 95.5 %; Platelet Count 302 K/uL (130-400); RDW Coefficient of Variation 13.7 % (11.5-14.5); RDW Standard Deviation 42.6 fL (36.4-46.3); Red Blood Count 4.56 M/uL (4.2-5.4)
[2019-07-03 08:00] LABS: Albumin Level 3.1 gm/dl (3.4-5.0); BUN Creatinine Ratio 11.9 (10-20); Calcium 8.5 mg/dl (8.5-10.1); Creatinine Clr Calc Pharmacy 63.6 ml/min; Est GFR (African American) 81.8; Est GFR (Non-African American) 70.6; Potassium 3.7 mmol/L (3.5-5.1)
[2019-07-03 08:04] LABS: Albumin Globulin Ratio 0.8 (0.9-2); Bilirubin,Total 0.2 mg/dl (0.2-1); Total Protein 7.1 gm/dl (6.4-8.2)
[2019-07-03] MEDS: methylPREDNISolone 40 MG in SYRINGE 0 ML IV SCH (08:49)
[2019-07-03] MEDS ORDERED: FLUOXETINE HCL 20 MG CAP PO SCH (09:00)
[2019-07-03] MEDS ORDERED: DOXYCYCLINE HYCLATE 100 MG CAP PO SCH (09:00)
[2019-07-03] MEDS: SODIUM CHLORIDE 0.9% 1000ML 1,000 ML IV SCH (10:45)
--- NOTE | 2019-07-03 11:28 | Electrocardiogram Report ---
Test Reason : Blood Pressure : / mmHG Vent. Rate : 120 BPM Atrial Rate : 120 BPM P-R Int : 138 ms QRS Dur : 080 ms QT Int : 342 ms P-R-T Axes : 057 -67 018 degrees QTc Int : 483 ms Sinus tachycardia Possible Left atrial enlargement Low voltage QRS possible old posterior MD Abnormal ECG No previous ECGs available Confirmed by Steve Fuentes ([id number]) on 07/03/2019 11:28:26 AM Referred By: REFERRED SELF Confirmed By:Hernan Fuentes
[2019-07-03] MEDS ORDERED: guaiFENesin 600 MG TABCR PO STA (12:10)
[2019-07-03] MEDS ORDERED: ALBUTEROL 0.5% NEB SOLN 2.5 MG/0.5 ML VIAL NEB STA (12:10)
[2019-07-03] MEDS ORDERED: ALBUTEROL 0.083% NEBU SOLN 3 ML VIAL NEB PRN (12:11)
--- NOTE | 2019-07-03 12:16 | Hospitalist Progress Note ---
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 Around the time that schools closed, her daughter returned from travel to her home and patient last saw a boyfriend who had flu like symptoms. She reports that her and her daughter have self-quarantined themselves at their home for 4 weeks. However, patient has not been feeling well since April and while she does not have actual febrile temperature she feels that running in high 90s Fahrenheit is not normal for her and having more shortness of breath. She did report more cleaning of her house with cleaning chemicals around the time her daughter returned him but no other potential respiratory triggers recently. Her recent home medications for shortness of breath have been albuterol and prednisone at home. Patient reports that she had 2 separate courses of prednisone as outpatient as 5 day course then another 14 day course and she had been off prednisone for around 10 days by the time she presented to the ED on 07/02/2019. Other REVIEW of SYSTEMS: No abdominal pain, no vomiting, no exposure to tick bites, no changes in bowel movements, no dysuria, no headache. -Patient was given solumedrol on the ambulance ride to hospital where she was found to have sinus tachycardia and borderline hypotensive. There are no lung infiltrates noted on the chest X ray. The chest X ray suggests "Subacute to chronic appearing mildly displaced fracture of the lateral left fourth rib." but patient does not report of having any acute chest or rib pain. elevated white blood cell count of 18,000 without a lymphocytic predominance -ED provider requests that hospitalist team do COVID-19 testing on this admission given patient's exposures to sick contacts and none of her sick contacts are known to have had any COVID-19 testing. -Patient has viral swab and COVID-19 testing and will admitted to a medical/telemetry bed with isolation precautions; influenza negative -patient was empirically started on respiratory antibiotics in the ED as cefepime and Doxycycline, follow the blood cultures, continue antibiotics as ceftriaxone with doxycycline for now on 07/03/2019 while awaiting blood culture resullts -admission CRP mildly elevated as 0.62, ESR elevated as 51, procalcitonin negative, LDH normal, initial troponin negative, initial lactic acid is normal -progress for 07/03/2019: IV fluids were given in ED on 07/02/2019 and then continued as maintenance fluid rate into 07/03/2019, hold off IV fluids for now to monitor blood pressures. patient given 40 mg IV solumedrol on AM of 07/03/2019, continue as daily for now. nebulizers from q6 as scheduled to be switched to prn if shortness of breath or wheezing. Give Mucinex to alleviate coughing. continue to monitor in patient. awaiting COVID-19 screening test results and blood culture results History of depression -continue fluoxetine 40 mg daily DVT prophylaxis: Lovenox 40 mg daily Full Code Daughter Mindy [phone] Admission and Anticipated Discharge Date Admission Date: July 02, 2019 Subjective Patient reports she was feeling better with her breathing since 1 AM. She is breathing on room air. she does not have any wheezing on exam. however towards end of the physical exam and encounter, patient had some coughing. on review of systems, no lightheadedness. no dizziness. no vomiting. no chest pain. no abdomen pain. Review of Systems Review of Systems: All systems reviewed & are unremarkable except as noted in Subjective Physical Exam Constitutional: comfortable Eyes: PERRL, conjunctivae normal, anicteric sclerae ENMT: external ear and nose normal, oropharynx normal Neck: normal visual inspection Respiratory: normal respiratory effort, lungs clear to auscultation coughing at the end of physical exam and encounter Cardiovascular: Rate/Rhythm: regular rate Gastrointestinal (Abdomen): normal bowel sounds, soft, nontender, no hepatosplenomegaly Musculoskeletal: Head/Neck/Chest: normocephalic Neurologic: PERRL, EOMI, accommodation nl, no face palsy, no dysarthria CN's II-XI intact bilaterally Psychiatric: A+Ox3, euthymic affect Results & Data Results & Data ([facility]) Vital Signs (Past 12 Hours) Vital Signs Temp Pulse Pulse Resp BP Pulse Ox 07/03/19 09:00 36.6 C 97 H 20 97/51 L 100 07/03/19 08:00 105 H 07/03/19 07:04 89 16 97 07/03/19 05:02 37.0 C 90 16 98/56 L 98 07/03/19 01:19 113 H 07/03/19 00:50 101 H 18 97
[2019-07-03] MEDS ORDERED: methylPREDNISolone 40 MG in SYRINGE 0 ML IV SCH (20:00)
[2019-07-03] MEDS ORDERED: ENOXAPARIN INJ 40 MG/0.4 ML SYR SQ SCH (20:00)
[2019-07-03] MEDS: DOXYCYCLINE HYCLATE 100 MG CAP PO SCH (20:53)
[2019-07-04 06:30] LABS: Basophils # (auto) 0.02 K/uL (0-0.2); Basophils % (auto) 0.1 %; Eosinophils # (auto) 0.22 K/uL (0-0.5); Hematocrit (blood only) 41.6 % (37-47); Hemoglobin 13.4 g/dL (12.0-16.0); Immature Granulocytes # (auto) 0.07 K/uL (0.00-0.02); Immature Granulocytes % (auto) 0.3 %; Lymphocytes # (auto) 2.06 K/uL (1.2-3.4); Lymphocytes % (auto) 9.1 %; Mean Corpuscular Hemoglobin 27.6 pg (25-34); Mean Corpuscular Hgb Conc 32.2 g/dL (32-36); Mean Corpuscular Volume 85.6 fL (80-100); Mean Platelet Volume 9.7 fL (7.4-10.4); Monocytes # (auto) 1.39 K/uL (0.11-0.59); Monocytes % (auto) 6.2 %; Neutrophils # (auto) 18.76 K/uL (1.4-6.5); Neutrophils % (auto) 83.3 %; Platelet Count 305 K/uL (130-400); RDW Coefficient of Variation 14.1 % (11.5-14.5); RDW Standard Deviation 43.9 fL (36.4-46.3); Red Blood Count 4.86 M/uL (4.2-5.4); White Blood Count 22.52 K/uL (4.8-10.8)
[2019-07-04 07:06] LABS: BUN Creatinine Ratio 18.2 (10-20); Calcium 9.3 mg/dl (8.5-10.1); Creatinine Clr Calc Pharmacy 65.8 ml/min; Est GFR (African American) 85.2; Est GFR (Non-African American) 73.5; Potassium 4.4 mmol/L (3.5-5.1)
[2019-07-04] MEDS ORDERED: methylPREDNISolone 40 MG in SYRINGE 0 ML IV SCH (08:00)
[2019-07-04] MEDS ORDERED: FLUOXETINE HCL 20 MG CAP PO SCH (08:00)
[2019-07-04] MEDS: cefTRIAXone SODIUM 1,000 MG in DEXTROSE 5% 50 ML IV SCH ×2 (08:41→10:29)
[2019-07-04] MEDS: DOXYCYCLINE HYCLATE 100 MG CAP PO SCH (08:41)
[2019-07-04 10:46] LABS: SARS CoV2 RNA (COVID-19) NOT DETECTED (NOT DETECTED)
--- NOTE | 2019-07-04 12:41 | Hospitalist Progress Note ---
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 Around the time that schools closed, her daughter returned from travel to her home and patient last saw a boyfriend who had flu like symptoms. She reports that her and her daughter have self-quarantined themselves at their home for 4 weeks. However, patient has not been feeling well since April and while she does not have actual febrile temperature she feels that running in high 90s Fahrenheit is not normal for her and having more shortness of breath. She did report more cleaning of her house with cleaning chemicals around the time her daughter returned him but no other potential respiratory triggers recently. Her recent home medications for shortness of breath have been albuterol and prednisone at home. Patient reports that she had 2 separate courses of prednisone as outpatient as 5 day course then another 14 day course and she had been off prednisone for around 10 days by the time she presented to the ED on 07/02/2019. Other REVIEW of SYSTEMS: No abdominal pain, no vomiting, no exposure to tick bites, no changes in bowel movements, no dysuria, no headache. -Patient was given solumedrol on the ambulance ride to hospital where she was found to have sinus tachycardia and borderline hypotensive. There are no lung infiltrates noted on the chest X ray. The chest X ray suggests "Subacute to chronic appearing mildly displaced fracture of the lateral left fourth rib." but patient does not report of having any acute chest or rib pain. elevated white blood cell count of 18,000 without a lymphocytic predominance -ED provider requests that hospitalist team do COVID-19 testing on this admission given patient's exposures to sick contacts and none of her sick contacts are known to have had any COVID-19 testing. -Patient has viral swab and COVID-19 testing and will admitted to a medical/telemetry bed with isolation precautions; influenza negative -patient was empirically started on respiratory antibiotics in the ED as cefepime and Doxycycline, follow the blood cultures, continue antibiotics as ceftriaxone with doxycycline for now on 07/03/2019 while awaiting blood culture resullts -admission CRP mildly elevated as 0.62, ESR elevated as 51, procalcitonin negative, LDH normal, initial troponin negative, initial lactic acid is normal -progress for 07/03/2019: IV fluids were given in ED on 07/02/2019 and then continued as maintenance fluid rate into 07/03/2019, hold off IV fluids for now to monitor blood pressures. patient given 40 mg IV solumedrol on AM of 07/03/2019, continue as daily for now. nebulizers from q6 as scheduled to be switched to prn if shortness of breath or wheezing. Give Mucinex to alleviate coughing. continue to monitor in patient. awaiting COVID-19 screening test results and blood culture results -progress for 07/04/2019: Patient with no wheezing and has normal heart rate. and better blood pressure than yesterday. Patient's COVID-19 testing returns as negative. and no growth to date from admission blood cultures. No further plans for antibiotics after Discharge to Home -Patient has telemedicine appointment with primary care doctor. Patient may benefit for referral for Pulmonary Function Testing, or a outpatient referral to a pulmonary doctor if needed Patient reports she has albuterol inhalers and nebulizer supplies at home if acute shortness of breath or wheezing Discharge medication sent electronically to [facility] [place] [address] of prednisone as 40 mg daily x 3 days then 30 mg daily x 3 days then 20 mg daily x 3 days then 10 mg daily x 3 days Mucinex 600 mg twice a day as needed for cough (This medication can be stopped if no coughing.) History of depression -continue fluoxetine 40 mg daily DVT prophylaxis: Lovenox 40 mg daily Full Code Daughter Mindy [phone] Admission and Anticipated Discharge Date Admission Date: July 02, 2019 Subjective Patient with no wheezing and has normal heart rate. and better blood pressure than yesterday. Patient's COVID-19 testing returns as negative. and no growth to date from admission blood cultures. No further plans for antibiotics after Discharge to Home no abdominal pain. no vomiting. no fevers. no chest pain. no vomiting. occasional dry cough is present Review of Systems Review of Systems: All systems reviewed & are unremarkable except as noted in Subjective Physical Exam Constitutional: comfortable Eyes: PERRL, conjunctivae normal, anicteric sclerae ENMT: external ear and nose normal, oropharynx normal Neck: normal visual inspection Respiratory: normal respiratory effort, lungs clear to auscultation Cardiovascular: Rate/Rhythm: regular rate Gastrointestinal (Abdomen): normal bowel sounds, soft, nontender, no hepatosplenomegaly Musculoskeletal: Head/Neck/Chest: normocephalic Neurologic: PERRL, EOMI, accommodation nl, no face palsy, no dysarthria CN 's II-XI intact bilaterally Psychiatric: A+Ox3, euthymic affect Results & Data Results & Data ([facility]) Vital Signs (Past 12 Hours) Vital Signs Temp Pulse Pulse Resp BP Pulse Ox 07/04/19 11:29 36.7 C 77 18 123/93 98 07/04/19 08:00 70 18 118/73 100 07/04/19 07:31 83 07/04/19 02:15 36.6 C 86 18 104/67 99
--- NOTE | 2019-07-04 12:50 | Discharge Summary ---
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 Around the time that schools closed, her daughter returned from travel to her home and patient last saw a boyfriend who had flu like symptoms. She reports that her and her daughter have self-quarantined themselves at their home for 4 weeks. However, patient has not been feeling well since April and while she does not have actual febrile temperature she feels that running in high 90s Fahrenheit is not normal for her and having more shortness of breath. She did report more cleaning of her house with cleaning chemicals around the time her daughter returned him but no other potential respiratory triggers recently. Her recent home medications for shortness of breath have been albuterol and prednisone at home. Other REVIEW of SYSTEMS: No abdominal pain, no vomiting, no exposure to tick bites, no changes in bowel movements, no dsyuria, no headache. -Patient was given solumedrol on the ambulance ride to hospital where she was found to have sinus tachycardia and borderline hypotensive. There are no lung infiltrates noted on the chest X ray. The chest X ray suggests "Subacute to chronic appearing mildly displaced fracture of the lateral left fourth rib." but patient does not report of having any acute chest or rib pain. elevated white blood cell count of 18,000 without a lymphocytic predominance -ED provider requests that hospitalist team do COVID-19 testing on this admiss ion given patient's exposures to sick contacts and none of her sick contacts are known to have had any COVID-19 testing. Principal Diagnosis SOB (shortness of breath) with Tachycardia and with Hypotension from asthma exacerbation (COVID 19 is ruled out, Influenza is ruled out, Bacterial infection is ruled out) Leukocytosis (from prednisone steroid use) Discharge Exam Constitutional comfortable Eyes PERRL, conjunctivae normal, anicteric sclerae ENMT external ear and nose normal, oropharynx normal Neck normal visual inspection Respiratory normal respiratory effort, lungs clear to auscultation Cardiovascular Rate/Rhythm: regular rate Gastrointestinal (Abdomen) normal bowel sounds, soft, nontender, no hepatosplenomegaly Musculoskeletal Head/Neck/Chest: normocephalic Neurologic PERRL, EOMI, accommodation nl, no face palsy, no dysarthria CN's II-XI intact bilaterally Psychiatric A+Ox3, euthymic affect Discharge Data Allergies Allergy/AdvReac Type Severity Reaction Status Date / Time Penicillins Allergy Intermediate rash Verified 07/02/19 16:40 Sulfa (Sulfonamide Allergy Intermediate rash Verified 07/02/19 16:40 Antibiotics) Consultations 07/02/19 17:59 ED Decision to Admit Stat Hospital Course (1) SOB (shortness of breath): (2) Tachycardia: SOB (shortness of breath) with Tachycardia and with Hypotension from asthma exacerbation (COVID 19 is ruled out, Influenza is ruled out, Bacterial infection is ruled out) Leukocytosis (from prednisone steroid use) -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 Around the time that schools closed, her daughter returned from travel to her home and patient last saw a boyfriend who had flu like symptoms. She reports that her and her daughter have self-quarantined themselves at their home for 4 weeks. However, patient has not been feeling well since April and while she does not have actual febrile temperature she feels that running in high 90s Fahrenheit is not normal for her and having more shortness of breath. She did report more cleaning of her house with cleaning chemicals around the time her daughter returned him but no other potential respiratory triggers recently. Her recent home medications for shortness of breath have been albuterol and prednisone at home. Patient reports that she had 2 separate courses of prednisone as outpatient as 5 day course then another 14 day course and she had been off prednisone for around 10 days by the time she presented to the ED on 07/02/2019. Other REVIEW of SYSTEMS: No abdominal pain, no vomiting, no exposure to tick bites, no changes in bowel movements, no dysuria, no headache. -Patient was given solumedrol on the ambulance ride to hospital where she was found to have sinus tachycardia and borderline hypotensive. There are no lung infiltrates noted on the chest X ray. The chest X ray suggests "Subacute to chronic appearing mildly displaced fracture of the lateral left fourth rib." but patient does not report of having any acute chest or rib pain. elevated white blood cell count of 18,000 without a lymphocytic predominance -ED provider requests that hospitalist team do COVID-19 testing on this admission given patient's exposures to sick contacts and none of her sick contacts are known to have had any COVID-19 testing. -Patient has viral swab and COVID-19 testing and will admitted to a medical/telemetry bed with isolation precautions; influenza negative -patient was empirically started on respiratory antibiotics in the ED as cefepime and Doxycycline, follow the blood cultures, continue antibiotics as ceftriaxone with doxycycline for now on 07/03/2019 while awaiting blood culture resullts -admission CRP mildly elevated as 0.62, ESR elevated as 51, procalcitonin negative, LDH normal, initial troponin negative, initial lactic acid is normal -progress for 07/03/2019: IV fluids were given in ED on 07/02/2019 and then continued as maintenance fluid rate into 07/03/2019, hold off IV fluids for now to monitor blood pressures. patient given 40 mg IV solumedrol on AM of 07/03/2019, continue as daily for now. nebulizers from q6 as scheduled to be switched to prn if shortness of breath or wheezing. Give Mucinex to alleviate coughing. continue to monitor in patient. awaiting COVID-19 screening test results and blood culture results -progress for 07/04/2019: Patient with no wheezing and has normal heart rate. and better blood pressure than yesterday. Patient's COVID-19 testing returns as negative. and no growth to date from admission blood cultures. No further plans for antibiotics after Discharge to Home -Patient has telemedicine appointment with primary care doctor. Patient may benefit for referral for Pulmonary Function Testing, or a outpatient referral to a pulmonary doctor if needed Patient reports she has albuterol inhalers and nebulizer supplies at home if acute shortness of breath or wheezing Discharge medication sent electronically to [facility] [place] [address] of prednisone as 40 mg daily x 3 days then 30 mg daily x 3 days then 20 mg daily x 3 days then 10 mg daily x 3 days Mucinex 600 mg twice a day as needed for cough (This medication can be stopped if no coughing.) History of depression -continue fluoxetine 40 mg daily DVT prophylaxis: Lovenox 40 mg daily Full Code Daughter Mindy [phone] Total Time Total Time Spent Total Time Spent (In Minutes): 40 minutes Total Time Includes: Examination of the Patient, Discharge Planning, Medication Reconciliation and Communication With Other Providers Discharge Plan Discharge Items Patient Disposition: Home - Self-Care Reason For Visit: SOB, TACHYCARDIA, LOW BP, COVID R/O Discharge Diagnosis: SOB (shortness of breath) with Tachycardia and with Hypotension from asthma exacerbation (COVID 19 is ruled out, Influenza is ruled out, Bacterial infection is ruled out), Leukocytosis (from from prednisone steroid use) Condition on Discharge: Good Activity: Resume your previous activity Non-emergency contact: Primary Care Provider Call non-emergency contact if: you have any medication questions Follow-up/Referrals: Brennen Sanchez MD [Primary Care Provider] - 07/10/19 11:20 am Diet: Regular Addtl Attending Provider Instructions: Discharge to Home Patient has telemedicine appointment with primary care doctor. Patient may benefit for referral for Pulmonary Function Testing, or a outpatient referral to a pulmonary doctor if needed Patient reports she has albuterol inhalers and nebulizer supplies at home if acute shortness of breath or wheezing Discharge medication sent electronically to [facility] [place] [address] of prednisone as 40 mg daily x 3 days then 30 mg daily x 3 days then 20 mg daily x 3 days then 10 mg daily x 3 days Mucinex 600 mg twice a day as needed for cough (This medication can be stopped if no coughing.) Pending Studies at Discharge: No Stand-Alone Forms: My [facility], Smoking Cessation Medications and DC Order Prescriptions: New prednisone 20 mg tablet 40 mg PO UD 12 Days Qty: 17 RF: 0 guaifenesin [Mucinex] 600 mg tablet extended release 12hr 600 mg PO BID PRN (Reason: cough) 7 Days Qty: 14 RF: 0 Continued fluoxetine 40 mg capsule 40 mg PO DAILY RF: 0 cetirizine 10 mg Tablet 10 mg PO DAILY PRN (Reason: Allergy Symptoms) RF: 0 famotidine [Pepcid] 20 mg Tablet 20 mg PO BID PRN (Reason: Heartburn) RF: 0 albuterol sulfate [Ventolin HFA] 90 mcg/actuation HFA aerosol inhaler 2 puff INHALATION .Q4-6HRS PRN (Reason: Shortness Of Breath Or Wheezing) RF: 0 fluticasone propionate [Flonase Allergy Relief] 50 mcg/actuation [place],Suspension 2 spray INTRANASAL DAILY PRN (Reason: Allergy Symptoms) RF: 0 [place]-3 Fish Oil 300-1,000 mg Capsule 1 cap PO DAILY RF: 0 Discharge Orders: Discharge Order (Routine); Ordered 07/04/19 Ordered By: Sunny Freeman Admission Data Admit Date/Time: 07/02/19 18:06 Attending Provider: Sunny Freeman Admit Provider: Sunny Freeman Primary Care Provider: Brennen Sanchez Other Providers: Sunny Freeman
== END 2019-07-04 14:45 | disposition home or self-care (01) | DRG 203 ==
LOC: ED 15:14 → 2W 18:06